=== PATIENT | female | born 1945 | race Caucasian/White ===

== ENCOUNTER 2017-06-26 10:52 | Outpatient (CLI) | payer MEDICARE ==
--- NOTE | 2017-06-26 12:24 | Ultrasound Report ---
LEFT LEG VENOUS DUPLEX: 06/26/2017 CLINICAL INDICATION: Pain. TECHNIQUE: Real-time sonographic vascular imaging was performed by the water regulator and valve repairer through the left lower extremity utilizing both color-flow and Doppler spectral analysis. Multiple member services representative static images were saved for review. FINDINGS: There is normal compression and augmentation in the left common femoral, profunda femoris, superficial femoral, and popliteal veins. There is thrombus in the left posterior tibial vein in the calf, in the region of the patient's pain. The peroneal vein appears unremarkable. IMPRESSION: LEFT CALF VEIN DVT. CRITICAL RESULTS: Results called to the office of Janneth Beaulieu MD, on 06/26/2017 at 11:45 a.m. TD: 06/26/2017 12:23
== END 2017-06-26 10:53 | disposition home or self-care (01) ==
LOC: DI 10:52
PROVIDERS: ATTEND Internal Medicine
DX: I82.4Z2 Acute embolism and thrombosis of unspecified deep veins of left distal lower extremity (principal)

== ENCOUNTER 2017-09-07 09:11 | Outpatient (CLI) | payer MEDICARE ==
[2017-09-07 18:09] LABS: ALBUMIN 3.7 g/dL (3.2-5.5); ALBUMIN/GLOBULIN RATIO 1.3 (1.0-2.2); BILIRUBIN,TOTAL 0.6 mg/dL (0.2-1.0); CALCIUM 8.6 mg/dL (8.5-10.3); CREATININE 0.8 mg/dL (0.4-1.0); TOTAL PROTEIN 6.5 g/dL (6.7-8.2)
== END 2017-09-07 09:12 | disposition home or self-care (01) ==
LOC: LAB.F 09:11
PROVIDERS: ATTEND Internal Medicine
DX: I82.402 Acute embolism and thrombosis of unspecified deep veins of left lower extremity (principal); E55.9 Vitamin D deficiency, unspecified; Z13.6 Encounter for screening for cardiovascular disorders; R79.89 Other specified abnormal findings of blood chemistry; Z79.890 Hormone replacement therapy
CPT/HCPCS: 36415; 80053; 82306; 82465; 82672; 84403; 85379

== ENCOUNTER 2017-09-08 08:30 | Outpatient (CLI) | payer MEDICARE ==
--- NOTE | 2017-09-09 15:02 | Mammography Report ---
DIGITAL SCREENING MAMMOGRAM: 09/08/2017 CLINICAL INDICATION: A 72-year-old nulliparous patient for screening. COMPARISON: 07/2013, 09/2010. TECHNIQUE: Routine CC and MLO projections were obtained of the breasts. FINDINGS: Scattered fibroglandular tissue is present within the breasts. There are no dominant masses, suspicious microcalcifications, or secondary signs of malignancy. In comparison to the previous studies, there are no significant changes. ASSESSMENT: NO MAMMOGRAPHIC EVIDENCE OF MALIGNANCY. NO SIGNIFICANT INTERVAL CHANGES. RECOMMENDATION: Screening mammography is recommended annually. BIRADS CATEGORY 1 - NEGATIVE. STANDARD QUALIFYING STATEMENTS: 1. This examination was reviewed with the aid of Computed-Aided Detection (CAD). 2. A negative or benign imaging report should not delay biopsy if clinically suspicious findings are present. Consider surgical consultation if warranted. More than 5% of cancers are not identified by imaging. 3. Dense breasts may obscure an underlying neoplasm. TD: 09/09/2017 15:02
== END 2017-09-08 08:31 | disposition home or self-care (01) ==
LOC: DI 08:30
PROVIDERS: ATTEND Internal Medicine
DX: Z12.31 Encounter for screening mammogram for malignant neoplasm of breast (principal)
CPT/HCPCS: 77067

== ENCOUNTER 2017-09-08 08:31 | Outpatient (CLI) | payer MEDICARE ==
--- NOTE | 2017-09-08 10:20 | Ultrasound Report ---
LEFT LEG VENOUS DUPLEX: 09/08/2017 CLINICAL INDICATION: Followup calf DVT. COMPARISON: 06/26/2017. TECHNIQUE: Real-time sonographic vascular imaging was performed by the clinical trial specialist through the left leg utilizing both color flow and Doppler spectral analysis. Multiple sales representative canvas products static images were saved for review. FINDINGS: A left lower extremity venous sonogram is performed revealing the common femoral, superficial femoral, profunda femoris, and popliteal veins to be adequately visualized without intraluminal defects. There is normal venous compression, augmentation, phasicity, and spontaneity of venous flow. In the calf, the visualized more cephalad portions of posterior tibial and peroneal veins are grossly compressible, without filling defects. The previously seen thrombus in the left posterior tibial vein has resolved. IMPRESSION: NO EVIDENCE OF DEEP VENOUS THROMBOSIS. TD: 09/08/2017 10:20
== END 2017-09-08 08:32 | disposition home or self-care (01) ==
LOC: DI 08:31
PROVIDERS: ATTEND Internal Medicine
DX: I82.402 Acute embolism and thrombosis of unspecified deep veins of left lower extremity (principal)

== ENCOUNTER 2018-03-26 18:32 | Outpatient (CLI) | payer MEDICARE ==
--- NOTE | 2018-03-26 19:40 | Ultrasound Report ---
Reason: PERSONAL HISTORY OF OTHER VENOUS THROMBOSIS AND EM Procedure Date: 03/26/2018 Accession Number: [id number] / [id number] Procedure: US - Duplex Ext Veins Left CPT Code: FULL RESULT: EXAM: LEFT LOWER EXTREMITY VENOUS ULTRASOUND EXAM DATE: 03/26/2018 07:28 PM. CLINICAL HISTORY: PERSONAL HISTORY OF OTHER VENOUS THROMBOSIS AND EM. COMPARISON: None. TECHNIQUE: Real-time sonographic vascular imaging was performed by the dental chairside assistant through the lower extremity utilizing both color-flow and Doppler spectral analysis. Multiple automotive leasing sales representative static images were saved for review. FINDINGS: Common Femoral Vein (CFV): Normal. CFV-GSV Junction: Normal. Profunda Femoral Vein (PFV): Normal. Femoral Vein (FV) Prox: Normal. Femoral Vein (FV) Mid: Normal. Femoral Vein (FV) Dist: Normal. Popliteal Vein: Normal. Posterior Tibial Veins: Normal. Peroneal Veins: Normal. Contralateral Side CFV: Normal. Other: None. IMPRESSION: No evidence for deep venous thrombosis. RADIA
== END 2018-03-26 18:33 | disposition home or self-care (01) ==
LOC: DI 18:32
PROVIDERS: ATTEND Internal Medicine
DX: Z86.718 Personal history of other venous thrombosis and embolism (principal)

== ENCOUNTER 2022-06-16 09:50 | Outpatient (CLI) | payer MEDICARE, OTHER ==
[2022-06-18 04:08] LABS: HSV 1 IGG TYPE SPEC <0.91 index (0.00-0.90)
== END 2022-06-16 09:51 | disposition home or self-care (01) ==
LOC: LAB 09:50
PROVIDERS: ATTEND Obstetrics & Gynecology
DX: Z11.3 Encounter for screening for infections with a predominantly sexual mode of transmission (principal)
CPT/HCPCS: 86695; 86696

== ENCOUNTER 2022-08-11 13:02 | Outpatient (CLI) | payer MEDICARE, OTHER ==
--- NOTE | 2022-08-12 09:36 | Mammography Report ---
BILATERAL DIGITAL SCREENING MAMMOGRAM 3D/2D: 08/11/2022 CLINICAL: Routine screening. Comparison is made to exams dated: 07/20/2013 mammogram and 09/08/2017 mammogram - [facility]. There are scattered areas of fibroglandular density in both breasts (category b / 25%-50% glandular t issue). No significant masses, calcifications, or other findings are seen in either breast. There has been no significant interval change. IMPRESSION: NEGATIVE There is no mammographic evidence of malignancy. A 1 year screening mammogram is recommended. Based on the Tyrer Cuzick model (a risk assessment model) the patients lifetime risk is 3.6% and her 10 year risk is 0.0%. According to the ACR, ACS, and NCCN guidelines, an annual breast MRI exam eun g with mammogram is recommended if the patients lifetime risk is 20% or greater. This exam was interpreted at Station ID: [id number]. NOTE: For mammograms, a report in lay terms will be sent to the patient. Approximately 15% of breast malignancies will not be visualized mammographically. In the management of a palpable breast mass, a negative mammogram must not discourage biopsy of a clinically suspicious lesion. Electronically Signed By: Huber [email or web address]:08/11/2022 14:55:09 letter sent: No_Letter ACR BI-RADS Category 1: Negative 3341F PARENCHYMAL PATTERN: (A) - The breast(s) demonstrate(s) scattered fibroglandular densities. BI-RADS CATEGORY: (1) - 1 Mammogram [id number] 1 year screening LATERALITY: (B)
== END 2022-08-11 13:03 | disposition home or self-care (01) ==
LOC: DI 13:02
PROVIDERS: ATTEND Obstetrics & Gynecology
DX: Z12.31 Encounter for screening mammogram for malignant neoplasm of breast (principal)